=== PATIENT | male | born 1980 | race African-American/Black ===

== ENCOUNTER 2022-06-10 21:43 | Emergency (ER) | payer SELFPAY ==
[~2022-06-10] VITALS: Ht 172.7 cm; Wt 109.0 kg
[2022-06-10 21:58] VITALS: BP 190/103
== END 2022-06-10 22:22 | disposition left against medical advice (07) ==
LOC: ER 21:57
DX: Z53.21 Procedure and treatment not carried out due to patient leaving prior to being seen by health care provider (principal); I49.9 Cardiac arrhythmia, unspecified
CPT/HCPCS: 93005